=== PATIENT | male | born 2000 | race Caucasian/White ===

== ENCOUNTER 2020-10-09 20:56 | Emergency (ER) | payer OTHER, SELFPAY ==
[2020-10-09 21:05] VITALS: BP 126/90; PULSE 97; RESP 20; TEMP 37.1; O2SAT 97
--- NOTE | 2020-10-09 21:19 | ED.ABDPAIN ---
HPI - Abdominal Pain General Chief Complaint: Abdominal Pain Stated Complaint: side pain Source: patient Mode of arrival: ambulatory Limitations: no limitations History of Present Illness HPI narrative: This is a 20-year-old male with history of IBS that presents with having left upper quadrant pain while he was cooking and has subsequently resolved currently with examination there is no pain no pain elicited has a history of IBS, currently there is no dysuria no hematuria no have hematochezia no flank pain no fever chills no nausea vomiting and no diarrhea or constipation. Patient was concerned about history of IBS and could not get in to see his primary care physician today and presented to the ER but currently not having any abdominal pain. MD elicited complaint: abdominal pain Pertinent past history: none Onset (ago): hour(s) Pain Consistency: now resolved Location: LUQ Severity: mild Quality: cramping Radiation: LUQ Exacerbating factors: nothing Relieving factors: nothing Related Data Home Medications Medication Instructions Recorded Confirmed famotidine 20 mg PO DAILY 10/09/20 10/09/20 hyoscyamine sulfate 0.125 mg PO DAILY 10/09/20 10/09/20 Allergies Allergy/AdvReac Type Severity Reaction Status Date / Time cat dander Allergy Unknown Unknown Verified 09/03/20 14:13 mold Allergy Unknown Unknown Verified 09/03/20 14:13 Review of Systems Review of Systems: All systems reviewed & are unremarkable except as noted in HPI and below PMFSH Past Medical History Medical History (Updated 10/09/20 @ 21:22 by Cristo Kemp MD) DEDRA (generalized anxiety disorder) GERD (gastroesophageal reflux disease) IBS (irritable bowel syndrome) MDD (major depressive disorder), recurrent episode, moderate Tetrahydrocannabinol (THC) dependence Surgical History Surgical History Hx of tonsillectomy 2006 Family History Family History Mother Family history of bipolar disorder Father Family history unknown Social History Social History Smoking status: Never smoker Tobacco type: cigarettes Alcohol intake: never Substance use: never Substance use type: does not use Exam Const: General: no acute distress and alert Orientation/consciousness: patient oriented x3 Limitations: altered mental status HENMT: Head: normal to inspection Eyes: Conjunctivae: conjunctivae normal Pupils: Equal, round and reactive pupils present EOM: EOMs intact bilaterally Neck: Neck: normal visual inspection, no lymphadenopathy and no meningeal signs Chest: Chest palpation & inspection: normal inspection of the chest Resp: Effort & Inspection: normal respiratory effort Auscultation: clear to auscultation bilaterally GI: GI Palp: Yes Soft to palpation Percussion: Yes normal to percussion : Testes: Testes normal Urinary Catheter: Urinary Catheter: patent and draining Back/Spine/Pelvis: Back: no CVA tenderness Skin: General skin exam: normal color Rashes: no rashes Extrem: General: normal to inspection and no pedal edema Psych: Mental Status: mental status grossly normal Affect: Anxious affect present Course Course Emergency Course: After talking the patient and giving him reassurance that he is having an anchor in pain advised to follow-up with his primary care physician, and take ibuprofen as needed. If symptoms persist or worsen can return to the ER. Critical Care Time Critical Care Time Critical Care Time: No Discharge Plan Discharge Clinical Impression: IBS (irritable bowel syndrome) Qualifiers: Irritable bowel syndrome type: unspecified Qualified Code(s): K58.9 - Irritable bowel syndrome without diarrhea Patient Disposition: Home, Self-Care Condition: Stable Instructions: Antibiotic Form, Irritable Bowel Syndrome (ED) Add
[2020-10-09 21:22] VITALS: BP 126/90; PULSE 87; RESP 20; TEMP 37.1; O2SAT 97
== END 2020-10-09 21:23 | disposition home or self-care (01) ==
PROVIDERS: Emergency Provider Emergency Medicine; PCP Family Medicine
DX: K58.9 Irritable bowel syndrome, unspecified (principal)
CPT/HCPCS: 99281; 99282

== ENCOUNTER 2021-05-10 13:34 | Emergency (ER) | payer OTHER, SELFPAY ==
--- NOTE | ~2021-05-10 | XR_ITS ---
EXAMINATION: XR chest 1V portable DATE: 05/10/2021 14:22 INDICATION: Left chest and arm pain. TECHNIQUE: A single frontal view of the chest was obtained. COMPARISON: None. FINDINGS: The chest demonstrates clear lungs without pneumonia, pleural effusion, or pneumothorax. Th e heart size is normal. IMPRESSION: 1. No acute cardiopulmonary disease. Reviewed, dictated and finalized at location A. [employer]
[2021-05-10 13:35] VITALS: BP 109/71; PULSE 108; RESP 20; TEMP 36.2; O2SAT 100
--- NOTE | 2021-05-10 13:39 | ECG_ITS ---
Measurements Intervals [place] Rate: 112 P: 76 MN: 164 QRS: 100 QRSD: 102 T: 58 QT: 345 QTc: 472 Interpretive Statements SINUS TACHYCARDIA RIGHT AXIS DEVIATION POSSIBLE LEFT ATRIAL ENLARGEMENT MINIMAL Q WAVES- INFERIOR LEADS ABNORMAL ECG Electronically Signed On 05-10-2021 16:29:22 HAND METHOD LASTING MACHINE OPERATOR by Power Wilson D.O.
[2021-05-10 14:00] LABS: Base Excess ABG -0.2 mmol/L (0-2); HCO3 ABG 18.8 mmol/L (23-29); Oxygen Saturation ABG 98.7 % (95-97); Oxyhemoglobin 97.6 % (94-100); PO2 ABG 131.1 mmHg (80-90); Total Hemoglobin 15.2 g/dL (12.0-18.0)
[2021-05-10 14:02] LABS: Basophils Absolute Auto 0.06 K/mm3 (0.00-0.10); Basophils Percent Auto 0.5 % (0.0-1.0); Eosinophils Absolute Auto 0.15 K/mm3 (0.02-0.50); Eosinophils Percent Auto 1.3 % (1.0-6.0); Hematocrit 43.3 % (40.0-54.0); Immature Granulocyte Absolute 0.07 K/mm3 (0.00-0.00); Immature Granulocyte Percent A 0.6 % (0.0-0.0); Lymphocytes Absolute Auto 3.21 K/mm3 (1.10-4.50); Lymphocytes Percent Auto 27.9 % (18.0-42.0); Mean Corpuscular HGB Conc 34.6 g/dL (32.0-36.0); Mean Corpuscular Hemoglobin 31.7 pg (27.0-31.0); Mean Corpuscular Volume 91.5 fL (78.0-102.0); Mean Platelet Volume 10.6 fl (8.7-11.0); Monocytes Absolute Auto 0.79 K/mm3 (0.10-0.90); Monocytes Percent Auto 6.9 % (2.0-11.0); Neutrophils Absolute Auto 7.2 K/mm3 (1.7-7.2); Neutrophils Percent Auto 62.8 % (50.0-70.0); Platelet Count Result 353 K/mm3 (150-420); Red Blood Count 4.73 M/mm3 (4.70-6.10); Red Cell Distribution Width 11.9 % (11.6-14.4); White Blood Count 11.5 K/mm3 (4.8-10.8)
[2021-05-10 14:03] LABS: Device ROOM AIR; Modified Allen's Test Pass; PCO2 ABG 19.8 mmHg (35-45); Site Drawn LEFT RADIAL
[2021-05-10 14:35] LABS: Lactic Acid Reflex 4.4 mmol/L (0.4-2.0)
[2021-05-10 14:35] LABS: SARS-CoV-2 RNA PCR Positive (Negative)
[2021-05-10 14:44] LABS: Alanine Aminotransferase 20 U/L (16-63); Albumin Level 4.4 g/dL (3.4-5.0); Alkaline Phosphatase 65 U/L (46-116); Anion Gap 16 mmol/L (8-16); Aspartate Amino Transferase 11 U/L (15-37); Bilirubin,Total 0.7 mg/dL (0.00-1.00); Blood Urea Nitrogen 9 mg/dL (7-18); Calcium 9.2 mg/dL (8.5-10.1); Carbon Dioxide 22 mmol/L (21-32); Chloride 101 mmol/L (98-108); Estimated CRCL calculation 92 ml/min; Estimated Glomerular Filt Rate > 60; Glucose 148 mg/dL (70-99); Osmolality Calculated 289 mOsm/kg (285-295); Potassium 2.7 mmol/L (3.5-5.1); Sodium 139 mmol/L (136-145); Total Protein 7.8 g/dL (6.4-8.2); Troponin I 5.4 ng/L (0.00-60.4)
[2021-05-10 14:44] LABS: Amphetamine Screen Urine Negative (Negative); Barbiturate Screen Urine Negative (Negative); Benzodiazepines Screen Urine Negative (Negative); Cannabinoid Screen Urine Positive (Negative); Cocaine Screen Urine Negative (Negative); Methadone Screen Urine Negative (Negative); Opiate Screen Urine Negative (Negative); Phencyclidine Screen Urine Negative (Negative)
[2021-05-10 14:48] LABS: Ethanol < 3 mg/dL (0-6)
[2021-05-10] MEDS: SODIUM CHLORIDE 0.9% IV 1,000 ML 999 ML IV CONT (15:27)
[2021-05-10] MEDS: POTASSIUM CHLORIDE 20 MEQ TABLET 60 MEQ PO (15:28)
[2021-05-10] MEDS: ASPIRIN 81 MG CHEWABLE TABLET 324 MG PO (15:28)
[2021-05-10] MEDS: KETOROLAC (*BKC) 60 MG/2 ML VIAL IM (15:35)
--- NOTE | 2021-05-10 15:36 | ED.CHESTPAIN ---
HPI - Chest Pain General Chief Complaint: Chest Pain Stated Complaint: chest pain Time Seen by Provider: 05/10/21 13:36 Source: patient and RN notes reviewed Mode of arrival: ambulatory Limitations: no limitations History of Present Illness MD complaint: chest pain Pertinent past history: other (prior chest pain episodes during panic attacks.) Onset (ago): hour(s) (3) Timing of current episode: constant Prior episodes: Yes Onset: during rest and awoke with symptoms Pain location: substernal Pain radiation: left arm Severity: moderate Pain scale (0-10): 5 Quality: tightness, heaviness and dull Relieving factors: nothing Exacerbating factors: exertion Associated symptoms: nausea Treatment prior to arrival: none Risk Factors Coronary artery disease risk factors: none Related Data Allergies Allergy/AdvReac Type Severity Reaction Status Date / Time cat dander Allergy Unknown Unknown Verified 09/03/20 14:13 mold Allergy Unknown Unknown Verified 09/03/20 14:13 Review of Systems Review of Systems: All systems reviewed & are unremarkable except as noted in HPI and below Cardiovascular: Cardiovascular: Reports chest pain Respiratory: Comments: rapid breathing due to anxiety. PMFSH Past Medical History Medical History DEDRA (generalized anxiety disorder) GERD (gastroesophageal reflux disease) IBS (irritable bowel syndrome) MDD (major depressive disorder), recurrent episode, moderate Tetrahydrocannabinol (THC) dependence Surgical History Surgical History Hx of tonsillectomy 2007 Family History Family History Mother Family history of bipolar disorder Father Family history unknown Social History Social History Smoking status: Never smoker Tobacco type: cigarettes Alcohol intake: never Substance use: never Substance use type: does not use Exam Const: General: no acute distress and alert Nutritional Appearance: well nourished Orientation/consciousness: patient oriented x3 Limitations: no limitations HENMT: Head: normal to inspection Ears: external ears normal and TM's normal bilaterally Mouth: Yes lip normal and Yes moist mucous membranes Teeth and gingiva: dentition normal Eyes: Conjunctivae: conjunctivae normal Pupils: Equal, round and reactive pupils present EOM: EOMs intact bilaterally Neck: Neck: normal visual inspection Chest: Chest palpation & inspection: normal inspection of the chest and tenderness (minimal upper sternal to left anterior chest wall tenderness) sternum Resp: Effort & Inspection: normal respiratory effort Auscultation: clear to auscultation bilaterally Cardio: Rate: regular rate Rhythm: regular rhythm GI: GI Palp: Yes Soft to palpation and No Tenderness to palpation present (GI) Auscultation: normal bowel sounds : General: Yes bladder normal to palpation and Yes no CVA tenderness Male General Exam: Yes normal external exam Back/Spine/Pelvis: Back: no CVA tenderness Skin: General skin exam: normal color Neuro: General: patient oriented x3, moves all extremities, no meningeal signs, no focal motor deficits and CN's II-XI intact bilaterally Extrem: General: normal to inspection and no pedal edema Psych: Appearance: grossly normal and well kempt Mental Status: mental status grossly normal Affect: Anxious affect present Thought content: Yes Normal thought content present Course Course Emergency Course: Pt was stable and pain-free in the ED. no focal neuro sxs or signs. Reevaluation(s) Reevaluation #1: VSS. pt will seek early PMD f/u. Date: 05/10/21 Time: 14:32 Vital Signs Vital signs: Vital Signs Temperature 36.2 C L 05/10/21 13:35 Pulse Rate 108 H 05/10/21 13:35 Respiratory Rate 20 05/10/21 13:35 Blood Pressure 109/71
[2021-05-10 16:08] VITALS: BP 126/83; PULSE 84; RESP 20; TEMP 36.6; O2SAT 97
== END 2021-05-10 16:11 | disposition home or self-care (01) ==
PROVIDERS: Emergency Provider Emergency Medicine; PCP Family Medicine
DX: R07.89 Other chest pain (principal); E87.6 Hypokalemia; F41.9 Anxiety disorder, unspecified; R06.4 Hyperventilation; U07.1 COVID-19
CPT/HCPCS: 36415; 36600; 71045; 80053; 80307; 82805; 83605; 84484; 85025; 93005; 96360; 96372; 99283; 99284; A9270; C9803; J1885; J7030; U0003; U0005